=== PATIENT | female | born 2000 | race African-American/Black ===

== ENCOUNTER 2020-03-04 15:43 | Emergency (ER) | payer OTHER, SELFPAY ==
--- NOTE | ~2020-03-04 | XR_ITS ---
EXAMINATION: XR forearm RT 2V INDICATION: Right forearm pain TECHNIQUE: Two views of the right forearm are obtained. COMPARISON: None available FINDINGS: There is no fracture, dislocation, or subluxation. Bone alignment is normal. Mild soft tiss ue swelling is seen near the distal forearm. The joint spaces are normal. IMPRESSION: 1. Soft tissue swelling of the distal forearm without acute osseous abnormality. Reviewed, dictated and finalized at location A. IMPRESSION: 1. Soft tissue swelling of the distal forearm without acute osseous abnormality .
[2020-03-04 15:56] VITALS: BP 129/89; PULSE 74; RESP 18; TEMP 36.2; O2SAT 100
--- NOTE | 2020-03-04 16:02 | ED.ABDPAIN ---
HPI - Abdominal Pain General Chief Complaint: Extremity Injury, Upper <Jeffrey Bass PA-C - Last Filed: 03/04/20 17:27> Stated Complaint: right arm/wrist pain <Jeffrey Bass PA-C - Last Filed: 03/04/20 17:27> Time Seen by Provider: 03/04/20 15:46 <OVIDIO Grayson Last Filed: 03/04/20 17:27> Source: patient <Jeffrey Bass PA-C - Last Filed: 03/04/20 17:27> Mode of arrival: ambulatory <Jeffrey Bass PA-C - Last Filed: 03/04/20 17:27> Limitations: no limitations <OVIDIO Grayson Last Filed: 03/04/20 17:27> History of Present Illness HPI narrative: Patient is a 19-year-old female who presents with right upper extremity pain noting that she developed right wrist pain in the morning upon waking 1 week ago and states that when going to work it became more swollen and tender noting aching pain worse with activity and movement denies injury trauma or similar occurrence or any radicular symptoms or paresthesias. Patient was seen at an outside hospital 1 week ago for the similar occurrence has been taking anti-inflammatories with minimal improvement <Jeffrey Bass PA-C - Last Filed: 03/04/20 17:27> Related Data Home Medications: Home Medications Medication Instructions Recorded Confirmed No Home Medications 03/04/20 03/04/20 <Jeffrey Bass PA-C - Last Filed: 03/04/20 17:27> Allergies/Adverse Reactions: Allergies Allergy/AdvReac Type Severity Reaction Status Date / Time No Known Allergies Allergy Verified 03/04/20 16:01 <Jeffrey Bass PA-C - Last Filed: 03/04/20 17:27> Review of Systems Review of Systems: All systems reviewed & are unremarkable except as noted in HPI and below <Jeffrey Bass PA-C - Last Filed: 03/04/20 17:27> [facility] Social History Social History: Social History (Updated 03/04/20 @ 16:03 by Jeffrey Bass PA-C) Smoking status: Never smoker Gender identity (if verbalized by the patient): Female <OVIDIO Grayson Last Filed: 03/04/20 17:27> Exam Narrative: Exam Narrative: GENERAL: Well-appearing, well-nourished, and in no acute distress. HEAD: Normocephalic, atraumatic. EYES: PERRLA and EOMI. ENT: Nares clear, no rhinorrhea or epistaxis. Mucous membranes moist. CHEST: Clear to auscultation. No respiratory distress. No wheezes rales or rhonchi HEART: Regular rate and rhythm. No murmur heard. Normal peripheral pulses. EXTREMITIES: Normal range of motion. No edema. Patient with tenderness of the right wrist and mid forearm with no deformities noted pleasant tolerating her she has SKIN: Warm, dry, no rash. NEURO: No focal deficits. Alert and oriented x3. Neurovascularly intact. Capillary refill less than 2 seconds PSYCH: Normal mood and affect. <Jeffrey Bass PA-C - Last Filed: 03/04/20 17:27> Course Vital Signs Vital signs: Vital Signs Temperature 36.2 C L 03/04/20 15:56 Pulse Rate 74 03/04/20 15:56 Respiratory Rate 18 03/04/20 15:56 Blood Pressure 129/89 03/04/20 15:56 Pulse Oximetry 100 03/04/20 15:56 Temperature 36.2 C L 03/04/20 15:56 Pulse Rate 78 03/04/20 17:35 Respiratory Rate 18 03/04/20 17:35 Blood Pressure 130/87 03/04/20 17:35 Pulse Oximetry 98 03/04/20 17:35 <Jeffrey Bass PA-C - Last Filed: 03/04/20 17:27> Vital Signs Temperature 36.2 C L 03/04/20 15:56 Pulse Rate 74 03/04/20 15:56 Respiratory Rate 18 03/04/20 15:56 Blood Pressure 129/89 03/04/20 15:56 Pulse Oximetry 100 03/04/20 15:56 Temperature 36.2 C L 03/04/20 15:56 Pulse Rate 78 03/04/20 17:35 Respiratory Rate 18 03/04/20 17:35 Blood Pressure 130/87 03/04/20 17:35 Pulse Oximetry 98 03/04/20 17:35 <Cynthia Petersen MD - Last Filed: 03/04/20 17:39> MDM - Abdominal Pain MDM Narrative Medical decision making narrative: Patients injury or pain is consistent with musculoskeletal etiology. No s
[2020-03-04 17:35] VITALS: BP 130/87; PULSE 78; RESP 18; O2SAT 98
== END 2020-03-04 17:36 | disposition home or self-care (01) ==
PROVIDERS: Emergency Provider Emergency Medicine
DX: S63.501A Unspecified sprain of right wrist, initial encounter (principal); S66.911A Strain of unspecified muscle, fascia and tendon at wrist and hand level, right hand, initial encounter; X58.XXXA Exposure to other specified factors, initial encounter
CPT/HCPCS: 73090; 99283

== ENCOUNTER 2020-03-05 10:24 | Emergency (ER) | payer OTHER, SELFPAY ==
--- NOTE | ~2020-03-05 | XR_ITS ---
XR wrist RT min 3V 03/05/2020 11:32 Indication: Right wrist pain and swelling Procedure: 4 views right wrist Comparison: 03/04/2020 Findings: No fracture, subluxation or dislocation. No significant soft tissue abnormality. Scaphoid i ntact. No foreign bodies. Impression: 1: No acute bone or joint abnormality. Reviewed, dictated and finalized at location A. Impression: 1: No acute bone or joint abnormality.
--- NOTE | ~2020-03-05 | US_ITS ---
EXAMINATION: US venous doppler UE RT DATE: 03/05/2020 11:51 INDICATION: Right arm swelling with pain TECHNIQUE: Garcia scale images with and without compression and Doppler images of the right upper extre mity veins were obtained. COMPARISON: None. FINDINGS: The right internal jugular vein, subclavian vein, axillary vein, brachial veins, basilic vein, cephal ic vein, radial vein, and ulnar vein are patent.] IMPRESSION: 1. Patent right upper extremity veins. No evidence of deep venous thrombosis. Reviewed, dictated and finalized at location A.
[2020-03-05 10:47] VITALS: BP 139/97; PULSE 80; RESP 18; TEMP 36.3; O2SAT 100
--- NOTE | 2020-03-05 11:17 | ED.UPPEXIN ---
HPI - Extremity Injury (Upper) General Chief Complaint: Extremity Injury, Upper <Leanna Boyer PA-C - Last Filed: 03/05/20 13:59> Stated Complaint: WRIST PAIN <OVIDIO Rothman Last Filed: 03/05/20 13:59> Time Seen by Provider: 03/05/20 11:08 <Leanna Boyer PA-C - Last Filed: 03/05/20 13:59> Source: patient <OVIDIO Rothman Last Filed: 03/05/20 13:59> Mode of arrival: ambulatory <OVIDIO Rothman Last Filed: 03/05/20 13:59> Limitations: no limitations <OVIDIO Rothman Last Filed: 03/05/20 13:59> History of Present Illness HPI narrative: This is a 19 year old female that presents to the ER for right wrist pain x 1 week. Reports no known injury or trauma. Reports she woke up about a week ago with swelling and pain to the right wrist. Reports the swelling has worsened. She was seen here for this yesterday and had an image of her forearm that was normal. Reports when she awoke today her wrist and hand felt more tight which prompted her to be seen. Reports decreased range of motion due to swelling. Denies erythema or numbness. <Leanna oByer PA-C - Last Filed: 03/05/20 13:59> Related Data Allergies/Adverse Reactions: Allergies Allergy/AdvReac Type Severity Reaction Status Date / Time No Known Allergies Allergy Verified 03/05/20 11:02 <Leanna Boyer PA-C - Last Filed: 03/05/20 13:59> Review of Systems Review of Systems: Narrative: CONSTITUTIONAL: Denies fever SKIN: Denies rash MUSCULOSKELETAL: Reports joint pain, and myalgia. NEUROLOGIC: Denies numbness <Leanna Boyer PA-C - Last Filed: 03/05/20 13:59> All systems reviewed & are unremarkable except as noted in HPI and below <OVIDIO Rothman Last Filed: 03/05/20 13:59> [facility], [facility] Social History Social History: Social History (Updated 03/05/20 @ 11:18 by Leanna Boyer PA-C) Smoking status: Never smoker Substance use: current Substance use type: marijuana Gender identity (if verbalized by the patient): Female <Leanna Boyer PA-C - Last Filed: 03/05/20 13:59> Exam Narrative: Exam Narrative: GENERAL: Well-appearing, well-nourished, and in no acute distress. HEAD: Normocephalic, atraumatic. EYES: EOMI. EXTREMITIES: Normal range of motion. Mild edema to the right wrist and hand without erythema or warmth. Normal radial pulses, normal sensation SKIN: Warm, dry, no rash. NEURO: No focal deficits. Alert and oriented x3. PSYCH: Normal mood and affect <Leanna Boyer PA-C - Last Filed: 03/05/20 13:59> Course Vital Signs Vital signs: Vital Signs Temperature 97.3 F L 03/05/20 10:47 Pulse Rate 80 03/05/20 10:47 Respiratory Rate 18 03/05/20 10:47 Blood Pressure 139/97 H 03/05/20 10:47 Pulse Oximetry 100 03/05/20 10:47 Temperature 97.3 F L 03/05/20 10:47 Pulse Rate 86 03/05/20 12:26 Respiratory Rate 17 03/05/20 12:26 Blood Pressure 123/86 03/05/20 12:26 Pulse Oximetry 98 03/05/20 12:26 <Leanna Boyer PA-C - Last Filed: 03/05/20 13:59> Vital Signs Temperature 97.3 F L 03/05/20 10:47 Pulse Rate 80 03/05/20 10:47 Respiratory Rate 18 03/05/20 10:47 Blood Pressure 139/97 H 03/05/20 10:47 Pulse Oximetry 100 03/05/20 10:47 Temperature 97.3 F L 03/05/20 10:47 Pulse Rate 86 03/05/20 12:26 Respiratory Rate 17 03/05/20 12:26 Blood Pressure 123/86 03/05/20 12:26 Pulse Oximetry 98 03/05/20 12:26 <Kristina Duke MD - Last Filed: 03/05/20 17:46> MDM - Extremity Injury (Upper) MDM Narrative Medical decision making narrative: Patient presents to the emergency department for right wrist pain and swelling x1 week. She is afebrile and nontoxic-appearing. Normal range of motion in the wrist. CBC with mild leukocytosis to 13.1. Inflammatory markers are also mildly elevated. Right wrist x-rays without acute findings. Venous Doppler of the right upper extremity is with
[2020-03-05] MEDS: KETOROLAC (*BKC) 60 MG/2 ML VIAL IM (11:52)
[2020-03-05 12:26] VITALS: BP 123/86; PULSE 86; RESP 17; O2SAT 98
[2020-03-05 12:47] LABS: Basophils Percent Auto 0.2 % (0.2-1.2); Eosinophils Percent Auto 0.1 % (0-4.4); Hematocrit 41.9 % (37.0-47.0); Hemoglobin 13.9 g/dL (12.0-15.0); Immature Granulocyte Absolute 0.06 K/mm3 (0.00-0.031); Immature Granulocyte Percent A 0.5 % (0-0.5); Lymphocytes Absolute Auto 1.77 K/mm3 (0.9-3.2); Lymphocytes Percent Auto 13.5 % (18.3-44.2); Mean Corpuscular HGB Conc 33.2 g/dl (32-36); Mean Corpuscular Volume 90.3 fl (80-100); Mean Platelet Volume 9.6 fl (7.4-10.4); Monocytes Percent Auto 7.3 % (2.6-8.5); Neutrophils Absolute Auto 10.3 K/mm3 (1.3-6.7); Neutrophils Percent Auto 78.4 % (45.5-73.1); Platelet Count Result 308 k/mm3 (150-375); Red Blood Count 4.64 M/mm3 (4.2-5.4); Red Cell Distribution Width 12.1 % (11.5-14.5); White Blood Count 13.1 K/mm3 (4.5-10.0)
[2020-03-05 12:54] LABS: Prothrombin Time 12.8 Seconds (11.1-14.7)
[2020-03-05 12:55] LABS: Partial Thromboplastin Time 26.5 SECONDS (22.3-36.8)
[2020-03-05 13:00] LABS: Blood Urea Nitrogen 6 mg/dL (7-17); CRP 4.2 mg/dL (<1.0); Calcium 8.6 mg/dL (8.4-10.2); Carbon Dioxide 21 mmol/L (22-30); Chloride 104 mmol/L (98-107); Estimated CRCL calculation 91 ml/min; Estimated Glomerular Filt Rate > 60; Glucose 91 mg/dL (65-105); Potassium 3.8 mmol/L (3.4-5.0); Sodium 133 mmol/L (137-145)
[2020-03-05 13:42] LABS: Erythrocyte Sedimentation Rate 30 mm/hr (0-20)
== END 2020-03-05 14:25 | disposition home or self-care (01) ==
PROVIDERS: Physician Assistant; Emergency Provider General Practice
DX: M25.531 Pain in right wrist (principal)
CPT/HCPCS: 36415; 73110; 80048; 85025; 85610; 85652; 85730; 86140; 93971; 96372; 99284; J1885

== ENCOUNTER 2022-10-18 10:08 | Emergency (ER) | payer OTHER, SELFPAY ==
[2022-10-18 10:24] VITALS: BP 141/84; PULSE 70; RESP 16; TEMP 36.8; O2SAT 99
--- NOTE | 2022-10-18 11:03 | ED.URI ---
HPI - URI/Sore Throat General Chief Complaint: Upper Respiratory Infection Stated Complaint: covid sx Source: patient and RN notes reviewed History of Present Illness HPI Narrative: 22 yo F presents to Urgent care with complaints of covid symptoms. Pt states she began having a UGARTE and slight cough 2 nights ago. Pt states she had one episode of vomiting yesterday. Denies any diarrhea, fevers, chills, chest pain, SOB, or dysuria. Related Data Allergies Allergy/AdvReac Type Severity Reaction Status Date / Time No Known Allergies Allergy Verified 10/18/22 10:21 Review of Systems Review of Systems: CONSTITUTIONAL: Denies fever, chills, or sweats. EYES: Denies visual changes, redness, or discharge. ENT: Denies otalgia and sore throat CARDIOVASCULAR: Denies chest pain, palpitations, or edema. RESPIRATORY: Reports cough GASTROINTESTINAL: Denies abdominal pain, nausea, vomiting, or diarrhea. GENITOURINARY: Denies dysuria or hematuria. SKIN: Denies rash or itching. MUSCULOSKELETAL: Denies back pain, joint pain, or myalgia. NEUROLOGIC: reports headache PMFSH Social History Social History (Updated 03/05/20 @ 11:18 by Leanna Boyer PA-C) Smoking status: Never smoker Substance use: current Substance use type: marijuana Gender identity (if verbalized by the patient): Female Comments At the time of my signature, I reviewed and agree with the nursing past medical, surgical, social, and family history. There is no relevant family history pertinent to the patient complaint. Exam Narrative: GENERAL: This is a well-nourished, well-developed patient, in no apparent distress. HEAD: normocephalic, atraumatic. EYES: PERRL. Sclera clear/white. Vision is grossly intact. EARS: External ears normal, auditory canals clear and without drainage, TMs normal without perforation. Hearing grossly intact. NOSE: External nose normal with no obvious nasal discharge, nares without redness, no rhinorrhea. THROAT: Mucous membranes moist, posterior pharynx clear. NECK: Neck supple, non-tender without lymphadenopathy, masses or thyromegaly. CARDIOVASCULAR: Regular rate and rhythm without murmurs, gallops, or rubs. RESPIRATORY: Clear to auscultation. Breath sounds equal bilaterally. No wheezes, rales, or rhonchi. GASTROINTESTINAL: Abdomen soft, non-tender, nondistended. Bowel sounds are active. No hepato-splenomegaly, or palpable masses. No guarding. SKIN: warm, intact with no suspicious lesions or rash, good texture and turgor. NEURO: awake, alert, and oriented to person, place and time. There were no obvious focal neurologic abnormalities. EXTREMITIES: No clubbing, cyanosis, or edema. No joint tenderness, effusion, or edema noted. No calf tenderness. Negative Homans sign bilaterally. BACK: Nontender without deformity or crepitance. No flank tenderness. Course Course Level of Care: Express Care Visit Vital Signs Vital signs: Vital Signs Temperature 98.3 F 10/18/22 10:24 Pulse Rate 70 10/18/22 10:24 Respiratory Rate 16 10/18/22 10:24 Blood Pressure 141/84 H 10/18/22 10:24 Pulse Oximetry 99 10/18/22 10:24 Oxygen Delivery Room Air 10/18/22 10:24 Temperature 98.3 F 10/18/22 10:24 Pulse Rate 70 10/18/22 10:24 Respiratory Rate 16 10/18/22 10:24 Blood Pressure 141/84 H 10/18/22 10:24 Pulse Oximetry 99 10/18/22 10:24 Oxygen Delivery Room Air 10/18/22 10:24 reviewed MDM - URI/Sore Throat MDM Narrative Medical decision making narrative: You've been diagnosed with a viral illness that would not require antibiotics at this time. Take the Zofran ODT at home as directed for nausea and get plenty of fluids. You may take Imodium for diarrhea. If you would like to eat food, you should follow the BRAT diet (bananas, rice, applesauce, and toast, or things of the like). If you develop any new or worsening symptoms, you should go to the emergency dept without hesitation. Follow up with your primary care
== END 2022-10-18 11:11 | disposition home or self-care (01) ==
PROVIDERS: Emergency Provider Nurse Practitioner Family; PCP Physician Assistant
DX: A08.4 Viral intestinal infection, unspecified (principal); Z20.822 Contact with and (suspected) exposure to COVID-19; Z86.16 Personal history of COVID-19
CPT/HCPCS: 87426; 99213; C9803; G0463

== ENCOUNTER 2024-02-28 20:27 | Emergency (ER) | payer SELFPAY ==
[2024-02-28 20:29] VITALS: BP 137/97; PULSE 56; RESP 14; TEMP 36.6; O2SAT 100
--- NOTE | 2024-02-28 20:46 | ECG_ITS ---
Test Date: 2024-02-28 20:54:54 Measurements Intervals [place] Rate: 48 P: 0 MO: 0 QRS: 63 QRSD: 81 T: 41 QT: 453 QTc: 407 Interpretive Statements SINUS BRADYCARDIA WITH ISORHYTHMIC AV DISSOCIATION ABNORMAL ECG No previous ECG available for comparison Electronically Signed On 02-29-2024 15:45:18 CDT by Mike Radford M.D.
[2024-02-28 21:01] VITALS: BP 177/102; PULSE 47; RESP 16; O2SAT 100
[2024-02-28 21:15] VITALS: O2SAT 100
[2024-02-28 21:25] LABS: Basophils Percent Auto 0.3 % (0.2-1.2); Eosinophils Percent Auto 0.1 % (0-4.4); Hematocrit 45.3 % (37.0-47.0); Hemoglobin 15.5 g/dL (12.0-15.0); Immature Granulocyte Absolute 0.02 K/mm3 (0.00-0.031); Immature Granulocyte Percent A 0.2 % (0-0.5); Lymphocytes Absolute Auto 2.47 K/mm3 (0.9-3.2); Lymphocytes Percent Auto 24.7 % (18.3-44.2); Mean Corpuscular HGB Conc 34.2 g/dl (32-36); Mean Corpuscular Hemoglobin 31.5 pg (26-34); Mean Corpuscular Volume 92.1 fl (80-100); Mean Platelet Volume 9.8 fl (7.4-10.4); Monocytes Absolute Auto 0.8 K/mm3 (0.1-0.6); Neutrophils Absolute Auto 6.7 K/mm3 (1.3-6.7); Neutrophils Percent Auto 66.7 % (45.5-73.1); Platelet Count Result 297 k/mm3 (150-375); Red Blood Count 4.92 M/mm3 (4.2-5.4); Red Cell Distribution Width 12.6 % (11.5-14.5)
[2024-02-28 21:40] LABS: Alanine Aminotransferase 22 U/L (6-35); Albumin Level 4.8 g/dL (3.5-5.1); Alkaline Phosphatase 80 U/L (38-126); Anion Gap 9 mmol/L (4-12); Aspartate Amino Transferase 25 U/L (14-36); Blood Urea Nitrogen 13 mg/dL (7-17); Calcium 9.1 mg/dL (8.4-10.2); Carbon Dioxide 28 mmol/L (22-30); Chloride 104 mmol/L (98-107); Estimated CRCL calculation 79 ml/min; Estimated Glomerular Filt Rate > 60; Glucose 85 mg/dL (65-110); Potassium 3.4 mmol/L (3.4-5.0); Sodium 141 mmol/L (137-145)
--- NOTE | 2024-02-28 21:55 | ED.GENADULT ---
[facility] General Adult General Chief complaint: Weakness Stated complaint: generalized weakness, decreased appetite Time Seen by Provider: 02/28/24 21:29 Source: patient Mode of arrival: ambulatory Limitations: no limitations History of Present Illness HPI narrative: This is a 23-year-old female who presents to the ED with chief complaint of generalized weakness and fatigue for the past 3 days. Patient reports that she started having decreased appetite vomiting on Thursday afternoon. She works in a doctor's office nearby. She states that she has had the chills but no recorded fevers. Endorses an episode of abdominal pain 2 days ago but has had none since. Related Data Allergies Allergy/AdvReac Type Severity Reaction Status Date / Time No Known Allergies Allergy Verified 10/18/22 10:21 Review of Systems Review of Systems: All systems as dictated in [facility] Social History Social History (Updated 03/05/20 @ 11:18 by Leanna Boyer PA-C) Smoking status: Never smoker Substance use: current Substance use type: marijuana Gender identity (if verbalized by the patient): Female Exam Narrative: GENERAL: Well-appearing, well-nourished, and in no acute distress. HEAD: Normocephalic, atraumatic. EYES: PERRLA and EOMI. ENT: Nares clear, no rhinorrhea or epistaxis. Mucous membranes moist. Oropharynx without tonsillar hypertrophy exudate or other lesions. NECK: Supple. No adenopathy or masses. CHEST: No respiratory distress. Clear to auscultation. No wheezes rales or rhonchi HEART: Regular rate and rhythm. No murmur heard. Normal peripheral pulses. ABDOMEN: Soft, nontender, nondistended, normal active bowel sounds. MSK: Normal range of motion. No edema. SKIN: Warm, dry, no rash. NEURO: Alert and oriented x4. No focal deficits. PSYCH: Normal mood and affect. Course Vital Signs Vital signs: Vital Signs Temperature 97.8 F 02/28/24 20:29 Pulse Rate 56 L 02/28/24 20:29 Respiratory Rate 14 02/28/24 20:29 Blood Pressure 137/97 H 02/28/24 20:29 Pulse Oximetry 100 02/28/24 20:29 Oxygen Delivery Room Air 02/28/24 20:29 Temperature 97.8 F 02/28/24 20:29 Pulse Rate 58 L 02/28/24 23:34 Respiratory Rate 12 02/28/24 23:34 Blood Pressure 155/88 H 02/28/24 23:34 Pulse Oximetry 100 02/28/24 23:34 Oxygen Delivery Room Air 02/28/24 21:15 Medical Decision Making MDM Narrative Medical decision making narrative: This is a 23-year-old female who presents to the ED for chief complaint of general weakness, nausea, vomiting. Vitals are normal. Exam is unremarkable. No evidence of acute abdomen. 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 Your symptoms are consistent with gastroenteritis. UA shows evidence of dehydration. Questionable UTI on urinalysis. She has no flank pain or fever to suggest pyelonephritis. She is feeling better after fluids and Zofran. She will be discharged with prescription for Zofran and cephalexin for possible UTI. Urine culture is pending. . Return precautions given and supportive measures discussed. Pt is understanding and agreeable with plan for discharge and follow-up with PCP. Vital Signs Vital Signs: Vital Signs Temperature 97.8 F 02/28/24 20:29 Pulse Rate 56 L 02/28/24 20:29 Respiratory Rate 14 02/28/24 20:29 Blood Pressure 137/97 H 02/28/24 20:29 Pulse Oximetry 100 02/28/24 20:29 Oxygen Delivery Room Air 02/28/24 20:29 Temperature 97.8 F 02/28/24 20:29 Pulse Rate 58 L 02/28/24 23:34 Respiratory Rate 12 02/28/24 23:34 Blood Pressure 155/88 H 02/28/24 23:34 Pulse Oximetry 100 02/28/24 23:34 Oxygen Delivery Room Air 02/28/24 21:15 Lab Data 02/28/24 21:19 02/28/24 21:19 Labs: Lab Results 02/28/24 02/28/24 Range/Units 21:19 22:03 WBC 10.0 (4.5-10.0) K/mm3 RBC 4.92 (4.2-5.4) M/mm3
[2024-02-28 22:14] LABS: Appearance Urine Cloudy (Clear); Bacteria Urine 2+ /hpf; Bilirubin Urine Negative (Negative); Blood Urine Negative (Negative); Color Urine Dark Yellow (Yellow); Glucose Urine UA Negative (Negative); Ketones Urine 3+ mg/dL (Negative); Leukocyte Esterase Ur 1+ LEU/UL (Negative); Nitrate Urine Negative (Negative); Protein Urine 1+ mg/dL (Negative); RBC Urine 0-2 /hpf (0-2); Squamous Epithelial Cell Urine Many /hpf (Few); WBC Urine 21-50 /hpf (0-3)
[2024-02-28 22:18] LABS: Specific Grav Ur 1.036 (1.001-1.035)
[2024-02-28 22:19] LABS: Add Urine Microscopic? YES
[2024-02-28] MEDS: SODIUM CHLORIDE 0.9% IV 1,000 ML 999 ML IV CONT (22:21)
[2024-02-28] MEDS: ONDANSETRON INJ 4 MG/2 ML VIAL IV PUSH (22:22)
[2024-02-28 23:34] VITALS: BP 155/88; PULSE 58; RESP 12; O2SAT 100
== END 2024-02-28 23:35 | disposition home or self-care (01) ==
PROVIDERS: Emergency Medicine; Emergency Provider Physician Assistant
DX: N39.0 Urinary tract infection, site not specified (principal); K52.9 Noninfective gastroenteritis and colitis, unspecified; R00.1 Bradycardia, unspecified
CPT/HCPCS: 36415; 80053; 81001; 85025; 87086; 87088; 93005; 96361; 96374; 99284; J2405; J7030